=== PATIENT | female | born 1985 | race Caucasian/White ===

== ENCOUNTER → 2019-01-20 17:45 | Outpatient (CLI) | payer OTHER, SELFPAY ==
[2019-01-22 16:06] LABS: HPV Reflexed? NOT INDICATED
== END ==
PROVIDERS: Family Provider Internal Medicine; PCP Internal Medicine; Referring Provider Obstetrics & Gynecology; Visit Provider Obstetrics & Gynecology
DX: Z12.4 Encounter for screening for malignant neoplasm of cervix (principal)
CPT/HCPCS: 88175; G0145

== ENCOUNTER → 2020-07-25 15:11 | Outpatient (CLI) | payer OTHER, SELFPAY ==
[2019-08-20 15:04] VITALS: BMI 34.6
--- NOTE | 2020-07-25 15:15 | BI_ITS ---
MAMMOGRAPHY - BILATERAL SCREENING REASON FOR EXAM: Female, 35 years old. Routine annual screening examination. PERTINENT HISTORY: Mother with breast cancer. Grandmother with breast cancer. TECHNIQUE: Digital bilateral breast tanmay (3D mammographic acquisition) in the CC and MLO projections. 2-D mediolateral oblique (MLO) and craniocaudad (CC) views of both breasts were obtained. CAD: Full Field Digital Mammography with Computer Added Detection was performed. COMPARISON: Comparison is made with prior study dated 01/10/2014. FINDINGS: Breast Composition: There are scattered areas of fibroglandular density. There are no dominant masses or suspicious calcifications. No other significant abnormalities are identified. There has been no significant change since the prior study. BI/SCREEN MAMM (CAD) W/TANMAY BILAT IMPRESSION: Stable bilateral screening mammogram. Yearly follow-up mammogram recommended. (A) ASSESSMENT CATEGORY: BIRADS Category 1: Negative. A letter regarding these results will be sent to the patient by the facility within 30 days. Approximately 10% of breast cancers are not detected by mammography. A normal mammogram should not delay biopsy of a clinically suspicious abnormality. [id number] Electronically Signed: Roman Richter, at 8:04 EST , Service support ,
== END ==
PROVIDERS: PCP Internal Medicine; Referring Provider Student in an Organized Health Care Education/Training Program; Visit Provider Student in an Organized Health Care Education/Training Program
DX: Z12.31 Encounter for screening mammogram for malignant neoplasm of breast (principal); Z80.3 Family history of malignant neoplasm of breast
CPT/HCPCS: 77063; 77067

== ENCOUNTER 2020-08-23 23:05 | Emergency (ER) | payer OTHER, SELFPAY ==
[2019-08-20 15:04] VITALS: BMI 34.6
[2020-08-23 23:06] VITALS: BP 136/75; PULSE 90; RESP 15; TEMP 36.3; O2SAT 99; BMI 35.3
--- NOTE | 2020-08-23 23:18 | EKG12_ITS ---
Test Reason : CP Blood Pressure : / mmHG Vent. Rate : 076 BPM Atrial Rate : 076 BPM P-R Int : 126 ms QRS Dur : 082 ms QT Int : 364 ms P-R-T Axes : 029 061 036 degrees QTc Int : 409 ms Normal sinus rhythm Normal ECG Confirmed by BERNADINE LEYVA, MARIA G ([id number]), marketing editor LORE MOTLEY ([id number]) on 08/28/2020 9:33:03 AM Referred By: WENDI Confirmed By:MARIE COLINDRES MD
--- NOTE | 2020-08-23 23:19 | ED.DCSUM_ITS ---
History of Present Illness Chief Complaint: Chest Pain Informant: Patient Narrative: 5-year-old female presenting with chest pain since yesterday. She states that it feels like it aches in the center of her chest. Is constant. It does not radiate. Patient was diagnosed with Covid?19 on 16 August however she has had symptoms since the . She states that she has been recovering well although she does have some shortness of breath which has been persistent. She does not have any fevers or chills anymore. She is eating and drinking normally. She does not have any significant cardiac history. No history of DVT/PE. Past Medical History - Allergies and Home Meds Allergies/Adverse Reactions: Allergies No Known Allergies Allergy (Verified 08/23/20 23:05) Primary Care Physician: Britt Galvan MD [Primary Care Provider] - Prior records reviewed: Yes Past Medical History: - - No significant medical history. Lives: Spouse/ Significant Other Smoking Status: Never smoker Alcohol: None Drugs: None Review of Systems General: Denies: Chills, Fever, Sweats Eyes: Denies: Visual changes - bilaterally, Diplopia ENT: Denies: Rhinorrhea, Sore throat Cardiovascular: Reports: Chest pain. Denies: Palpitations Respiratory: Reports: Dyspnea on exertion - Mild. Denies: Dyspnea, Cough Gastrointestinal: Denies: Abdominal pain, Nausea, Vomiting, Diarrhea, Melena, Hematochezia Genitourinary: Denies: Dysuria, Hematuria, Frequency Musculoskeletal: Denies: Back pain, Extremity Pain Skin: Denies: Rash, Wounds Neurological: Denies: Headache, Weakness, Numbness Psych: Denies: Depression, Anxiety Endocrine: Denies: Polyuria, Polydipsia Physical Exam Vital Signs/Narrative: Vital Signs Temp Pulse Resp BP Pulse Ox 08/23/20 23:06 97.4 F L 90 15 136/75 H 99 Inital Vital Signs reviewed: Yes General: Well nourished, No Acute Distress Head: Normocephalic, Atraumatic Eyes: Perrl, EOMI ENT: Moist mucous membranes, No rhinorrhea Cardiovascular: Regular rate, Regular rhythm Respiratory: No distress, CTA bilaterally Extremities: Nontender, No edema Skin: Normal color, No rash. Negative for: Cyanosis, Diaphoresis Neurological: Alert, Oriented x3, Cranial nerves II-XII grossly intact Psychological: Normal affect, Normal Mood Diagnostic/Tx/Re-eval Clinical Impression(s) from Imaging Studies Chest CTA 08/24/20 00:05 IMPRESSION: Normal CTA chest examination, without a demonstrated pulmonary embolism or arterial dissection. Electronically Signed: Naheed Ceja MD at 0:52 EST , Service support , Laboratory Data 08/23/20 08/23/20 23:30 23:30 WBC 8.9 RBC 4.32 Hgb 12.8 Hct 38.8 MCV 89.8 MCH 29.6 MCHC 33.0 RDW Std Deviation 39.6 RDW Coeff of [place] 12.2 Plt Count 320 MPV 10.0 Immature Gran % (Auto) 1.100 H Neut % (Auto) 52.4 Lymph % (Auto) 37.5 [place] % (Auto) 7.2 Eos % (Auto) 1.2 Baso % (Auto) 0.6 Absolute Neuts (auto) 4.7 Absolute Lymphs (auto) 3.33 Nucleated RBC % 0 Sodium 138 Potassium 3.3 L Chloride 104 Carbon Dioxide 30.0 Anion Gap 4 L BUN 16 Creatinine 1.02 Estim Creat Clear Calc 63.68 Est GFR (MDRD) Af Amer 79 Est GFR (MDRD) Non-Af 65 BUN/Creatinine Ratio 15.7 Glucose 123 H Calcium 9.2 Troponin I < 0.015 - Rhythm Strip Rhythm Strip: Sinus Rhythm Rate: 114 - EKG Initial EKG Interpretation: No Acute Injury Pattern, Sinus Tachycardia - Medical Decision Making 35-year-old female presenting with chest pain which has been constant since yesterday. She does not have significant shortness of breath but states she has had some residual shortness of breath secondary to Covid?19 infection. She states she is mostly recovered and feels fairly well with exception of the new onset of chest pain over the last 24 hours. Patient no longer has fever or other symptoms of Covid?19. EKG performed on arrival and interpreted by myself shows a sinus rhythm at 76 bpm without ischemic changes. CTA of the chest interpreted by the radiologist and reviewed by myself shows no acute pulmonary process. Troponin is negative. Lab work is unremarkable. Patient counseled that her chest pain is likely not cardiac in nature due to it being present for 24 hours and having a negative troponin and normal EKG. She was counseled that she does not have a pulmonary embolism or other acute pulmonary process. Patient will be discharged home in stable condition. She was recommended to follow-up with her primary care provider for any new or worsening symptoms. She is given return precautions. Patient stable discharge at this time. Impression: 1. Chest pain 2. History of Covid?19 ED Disposition - Plan for ED Patient: Disposition: Home or Assisted Living Instructions: ED Chest Pain, Uncertain Cause Referrals: Britt Galvan MD [Primary Care Provider] -
[2020-08-23 23:28] VITALS: O2SAT 99
[2020-08-23 23:40] LABS: Absolute Lymphocyte Count 3.33 X10^3/uL (0.83-4.51); Absolute Neutrophil Count 4.7 X10^3/uL (2.0-7.7); Basophil# 0.05 X10^3/uL; Basophil% 0.6 % (0-1); Eosinophil# 0.11 X10^3/uL; Eosinophils% 1.2 % (0-5); Hematocrit 38.8 % (37-47); Hemoglobin 12.8 g/dL (12.0-15.0); Lymphocyte # 3.33 X10^3/ul (4.0); Lymphocyte % 37.5 % (19-41); Mean Corpuscular Hgb 29.6 pg (27.0-32.0); Mean Corpuscular Volume 89.8 fL (81-99); Monocyte# 0.64 X10^3/uL; Monocyte% 7.2 % (0-10); NRBC Flagged by Analyzer 0 % (0-5); Neutrophil # 4.66 X10^3/uL (2.7-7.7); Neutrophil % 52.4 % (47-70); Platelet Count 320 K/mm3 (150-450); RBC Distribution Width CV 12.2 % (11.6-14.6); RBC Distribution Width SD 39.6 fl (35.1-43.9); Red Blood Count 4.32 M/mm3 (4.2-5.4); White Blood Count 8.9 K/mm3 (4.4-11.0)
[2020-08-23 23:59] LABS: Anion Gap 4 (5-15); BUN 16 mg/dL (7-18); BUN/Creat Ratio 15.7 RATIO (10-20); Calcium,Total 9.2 mg/dL (8.5-10.1); Chloride 104 mmol/L (98-107); Creatinine, Serum 1.02 mg/dL (0.55-1.02); EST Glomerular Filtration Rate 65 mL/min (>60); Est Glom Filt Rate - Afr Amer 79 mL/min (>60); Estimated Creatinine Clearance 63.68 ml/min; Glucose 123 mg/dL (74-106); Potassium 3.3 mmol/L (3.5-5.1); Sodium Level 138 mmol/L (136-145)
--- NOTE | 2020-08-24 00:05 | CT_ITS ---
STUDY: CTA CHEST REASON FOR EXAM: Female, 35 years old. CP/Hurts to take deep breath. Not . Covid positive RADIATION DOSAGE (If Supplied By Facility): CTDIvol = ( 11.42 ) mGy, DLP = ( 478.82 ) mGycm TECHNIQUE: The examination was performed with the intravenous administration of IV 100mL Isovue-300. Post-processing of the angiographic images was performed, with multiplanar reformation and 3D reconstruction. Individualized dose optimization techniques were used for this CT. COMPARISON: None. FINDINGS: Normal enhancement of the main pulmonary artery and right and left pulmonary arteries. Normal enhancement of the bilateral peripheral pulmonary arteries. There is no demonstrated pulmonary embolism. Normal thoracic aorta and visualized great vessels. There is no demonstrated aortic dissection. Normal heart and pericardium. Normal mediastinum. Normal hilar regions. Normal visualized trachea and bronchi. The lungs are well expanded. Normal pulmonary parenchyma. Normal pleura. Normal chest wall structures. Normal osseous structures. Normal visualized upper abdomen. CT/CTA Chest W/WO Contrast IMPRESSION: Normal CTA chest examination, without a demonstrated pulmonary embolism or arterial dissection. Electronically Signed: Naheed Ceja MD at 0:52 EST , Service support ,
[2020-08-24 01:42] VITALS: PULSE 80; RESP 16; O2SAT 95
[2020-08-24 02:25] VITALS: BP 109/73; PULSE 85; RESP 16; O2SAT 96
== END 2020-08-24 02:27 | disposition home or self-care (01) ==
PROVIDERS: Emergency Provider Student in an Organized Health Care Education/Training Program; PCP Internal Medicine
DX: R07.9 Chest pain, unspecified (principal); Z79.84 Long term (current) use of oral hypoglycemic drugs; Z79.899 Other long term (current) drug therapy; Z86.19 Personal history of other infectious and parasitic diseases
CPT/HCPCS: 71275; 80048; 84484; 85025; 93005; 99284; Q9967; A4216

== ENCOUNTER 2021-11-05 16:20 | Outpatient (CLI) | payer OTHER, SELFPAY ==
[2021-11-11 16:30] LABS: HPV APTIMA, High Risk Negative (Negative)
== END 2021-11-05 23:59 | disposition home or self-care (01) ==
LOC: LABSPEC 16:21
PROVIDERS: PCP Internal Medicine; Visit Provider Student in an Organized Health Care Education/Training Program
DX: Z12.4 Encounter for screening for malignant neoplasm of cervix (principal)
CPT/HCPCS: 36415; 87624; 88175; G0145

== ENCOUNTER 2021-11-14 15:01 | Outpatient (CLI) | payer OTHER, SELFPAY ==
--- NOTE | 2021-11-14 15:03 | BI_ITS ---
MAMMOGRAPHY - BILATERAL SCREENING REASON FOR EXAM: Female, 36 years old. Routine annual screening examination. PERTINENT HISTORY: Mother with breast cancer. Grandmother with breast cancer. TECHNIQUE: Digital bilateral breast tanmay (3D mammographic acquisition) in the CC and MLO projections. 2-D mediolateral oblique (MLO) and craniocaudad (CC) views of both breasts were obtained. CAD: Full Field Digital Mammography with Computer Added Detection was performed. COMPARISON: Comparison is made with prior study dated 07/25/2020 and 01/10/2014. FINDINGS: Breast Composition: There are scattered areas of fibroglandular density. There are no dominant masses or suspicious calcifications. Stable small benign-appearing bilateral axillary lymph. No other significant abnormalities are identified. There has been no significant change since the prior study. BI/SCRN MAMM (CAD)W/TANMAY BILAT IMPRESSION: Stable bilateral screening mammogram. Yearly follow-up mammogram recommended. (A) ASSESSMENT CATEGORY: BIRADS Category 2: Benign. A letter regarding these results will be sent to the patient by the facility within 30 days. Approximately 10% of breast cancers are not detected by mammography. A normal mammogram should not delay biopsy of a clinically suspicious abnormality. [id number] Electronically Signed: Roman Richter MD at 15:40 EDT ,
== END 2021-11-14 23:59 | disposition home or self-care (01) ==
LOC: OPBI 15:02
PROVIDERS: PCP Internal Medicine; Visit Provider Student in an Organized Health Care Education/Training Program
DX: Z12.31 Encounter for screening mammogram for malignant neoplasm of breast (principal); Z80.3 Family history of malignant neoplasm of breast
CPT/HCPCS: 77063; 77067

== ENCOUNTER → 2023-08-21 | Outpatient (CLI) | payer OTHER, SELFPAY ==
--- OUTSIDE RECORDS SUMMARY | 2023-08-21 08:44 | XMS RPT_ITS | CCD ---
Author Name Unknown Address [address] [place] [address] Organization [facility] Care Team Providers Care Interface Developer Name Role Phone Zari Hightower LPN Unavailable Unavailable JAYNA MCBRIDE DO Attending Unavailable JAYNA MCBRIDE DO Primary Care Unavailable JAYNA MCBRIDE DO Admitting Unavailable Free, Text Entry Unavailable Unavailable Mary Salmeron Unavailable Unavailable Edd, Dr. Hernandez Referring Unavailbeba Puga, Dr. Hernandez Attending Unavailbeab Puga, Dr. Hernandez Primary Care UnavailMary Stover Unavailable [phone] FRANCOIS GRIFFITH Primary Care Unavailable ROCHELLE, GIUSEPPE Referring Unavailable ROCHELLE GIUSEPPE Referring Unavailable FRANCOIS GRIFFITH Primary Care Unavailable ROCHELLE GIUSEPPE Attending Unavailable FRANCOIS GRIFFITH Primary Care Unavailable Medications Current Medications Medication Drug Class(es) Dates Sig (Normalized) Sig (Original) amoxicillin 80 mg/ml oral suspension (1 source) Penicillin-class Antibacterial Start: 11-02-2021 End: 11-11-2021 take 11 mL by mouth twice daily amoxicillin 400 mg/5 mL oral liquid ; 11 milliliter(s) orally 2 times a day x 10 days Quantity: 230 Refills: 0 Ordered: 02-Nov-2021 Mary Salmeron Start: 02-Nov-2021 End: 11-Nov-2021 Generic Substitution Allowed Comments: Expires Finish all this medication unless otherwise directed by prescriber.Refrig erate and shake well. Expires Completed/Discontinued Medications Medication Drug Class(es) Dates Sig (Normalized) Sig (Original) apremilast 30 mg oral tablet (2 sources) Start: 01-17-2022 Otezla 30 MG Oral Tablet Quantity: 0 Refills: 0 Ordered: 10-Jun-2022 Mary Puga DO Start : 17-Jan-2022 Active Problems Active Problems Problem Classification Problem Date Documented Date Episodic/Chronic Conduction disorders (1 source) Left bundle branch block; Translations: [Left bundle-branch block, unspecified] Onset: 11-21-2011 11-21-2011 Chronic Menstrual disorders (1 source) Irregular menstruation, unspecified; Translations: [Irregular menstrual cycle] Onset: 08-08-2023 Chronic Mood disorders (1 source) Depressive disorder; Translations: [Depressive disorder, not elsewhere classified] Chronic Other inflammatory condition of skin (1 source) Psoriatic arthritis; Translations: [Psoriatic arthropathy] Chronic Other nutritional; endocrine; and metabolic disorders (1 source) Obesity; Translations: [Obesity, unspecified] Chronic Other nutritional; endocrine; and metabolic disorders (1 source) Obese class I; Translations: [Obesity, unspecified] Chronic Other nutritional; endocrine; and metabolic disorders (1 source) Intentional weight loss; Translations: [Weight loss, intentional] Episodic Other screening for suspected conditions (not mental disorders or infectious disease) (1 source) Encounter for screening mammogram for malignant neoplasm of breast; Translations: [Encounter for screening mammogram for malignant neoplasm of breast] Onset: 08-14-2023 Episodic Other skin disorders (1 source) Acne; Translations: [Other acne] Episodic Other upper respiratory infections (1 source) Viral upper respiratory tract infection; Translations: [Acute upper respiratory infections of unspecified site] 11-02-2021 Episodic Otitis media and related conditions (2 sources) Acute otitis media; Translations: [Unspecified otitis media] 11-02-2021 Episodic Residual codes; unclassified (1 source) History finding; Translations: [Other specified conditions influencing health status] Episodic Spondylosis; intervertebral disc disorders; other back problems (3 sources) Other intervertebral disc degeneration, lumbar region; Translations: [Other intervertebral disc degeneration, lumbar region] Onset: 01-09-2021 Chronic Spondylosis; intervertebral disc disorders; other back problems (1 source) Degeneration of intervertebral disc; Translations: [Degeneration of intervertebral disc, site unspecified] Episodic Thyroid disorders (1 source) Goiter; Translations: [Nontoxic goiter, unspecified] Onset: 07-22-2017 07-22-2017 Chronic Unclassified (2 sources) EARACHE SORE THROAT 11-02-2021 Past or Other Problems Problem Classification Problem Date Documented Da te Episodic/Chronic Cardiac dysrhythmias (1 source) Palpitations; Translations: [Palpitations] Onset: 11-21-2011 11-21-2011 Episodic Results Test Name Value Interpretation Reference Range Facil ity Vital Signs Date Time Vital Sign Value Performing Clinician Facility 06-10-2022 14:56-0400 Body height 160.02 cm Mary L Oberhauser Work Phone: [facility] Work Phone: 06-10-2022 14:56-0400 Body mass index (BMI) [Ratio] 34.54 kg/m2 Mary L Oberhauser Work Phone: [facility] Work Phone: 06-10-2022 14:56-0400 Body surface area Derived from formula 1.91 m2 Mary L Oberhauser Work Phone: [facility] Work Phone: 06-10-2022 14:56-0400 Body weight 88.45 kg Mary L Oberhauser Work Phone: [facility] Work Phone: 06-10-2022 14:56-0400 Diastolic blood pressure 70 mm[Hg] Mary L Oberhauser Work Phone: [facility] Work Phone: 06-10-2022 14:56-0400 Heart rate 93 /min Mary L Oberhauser Work Phone: [facility] Work Phone: 06-10-2022 14:56-0400 Systolic blood pressure 119 mm[Hg] Mary L Oberhauser Work Phone: [facility] Work Phone: 11-02-2021 16:52-0500 Body height 160 cm Text Entry Free [facility] 11-02-2021 16:52-0500 Body temperature 98.06 [degF] Text Entry Free [facility] 11-02-2021 16:52-0500 Diastolic blood pressure 80 mm[Hg] Text Entry Free [facility] 11-02-2021 16:52-0500 Heart rate 98 /min Text Entry Free [facility] 11-02-2021 16:52-0500 Respiratory rate 16 /min Text Entry Free [facility] 11-02-2021 16:52-0500 SaO2% (BldA) [Mass fraction] 99 % Text Entry Free [facility] 11-02-2021 16:52-0500 Systolic blood pressure 130 mm[Hg] Text Entry Free [facility] 11-22-2011 14:53-0400 BMI (Body Mass Index) 28.85 kg/m2 [facility] Work Phone: 11-22-2011 14:53-0400 BP Diastolic 60 mm[Hg] [facility] Work Phone: 11-22-2011 14:53-0400 BP Systolic 100 mm[Hg] [facility] Work Phone: 11-22-2011 14:53-0400 Height 160.02 cm [facility] Work Phone: 11-22-2011 14:53-0400 Pulse (Heart Rate) 82 /min [facility] Work Phone: 11-22-2011 14:53-0400 Respiratory Rate 20 /min [facility] Work Phone: 11-22-2011 14:53-0400 Weight 73.62 kg Zari Hightower LPN [facility] Work Phone: Encounters Encounter Date Encounter Type Care Provider Facility Start: 08-14-2023 End: 08-14-2023 ambulatory FRANCOIS GRIFFITH Facility:[facility] Start: 08-08-2023 End: 08-09-2023 ambulatory GIUSEPPE BYRD Facility:[facility] Start: 06-10-2022 Office outpatient ne w 45 minutes Mary Puga Work Phone: [facility] Work Phone: Start: 06-10-[address] Mary Puga Fa cility:[id number] Start: 11-02-2021 End: 11-02-2021 Emergency department patient visit Mary Salmeron [facility] Start: 01-09-2021 End: 01-09-2021 ambulatory [facility] Procedures Date Procedure Procedure Detail Performing Clinician Start: 11-22-2011 End: 12-04-2011 24 hour holter monitor Rosalio Cartwright MD Start: 11-22-2011 End: 12-04-2011 Echocardiography Rosalio Cartwright MD Start: 11-22-2011 End: 12-04-2011 Stress Echocardiogram (treadmill) Rosalio Cartwright MD Dilation and curettage Mary Puga Work Phone: Injection of spinal epidural space Mary Puga Work Phone: Plan of Treatment Date Care Activity Detail Author Start: 07-22-2017 End: 07-22-2017 Appointment Appointment [facility] Work Phone: Start: 07-22-2017 End: 07-22-2017 Thyroid stimulating hormone (TSH) *TSH [facility] Work Phone: Start: 07-22-2017 End: 07-22-2017 Thyroxine (T4) free *T4 free [facility] Work Phone: Start: 07-22-2017 End: 07-22-2017 Triiodothyronine (T3) free *T3-Free [facility] Work Phone: Start: 07-22-2017 End: 07-22-2017 Us soft tissue head & neck real time imge docm US Thyroid (Soft tissue neck) [facility] Work Phone: Start: 11-22-2011 End: 11-22-2011 24 hour holter monitor 24 hour holter monitor [facility] Work Phone: Start: 11-22-2011 End: 11-22-2011 Ecg routine ecg w/least 12 lds w/i&r EKG (In office) [facility] Work Phone: Start: 11-22-2011 End: 11-22-2011 Echocardiography Echocardiogram (complete) [facility] Work Phone: Start: 11-22-2011 End: 11-22-2011 Follow Up Appt 6 weeks Follow Up Appt 6 weeks [facility] Work Phone: Start: 11-22-2011 End: 11-22-2011 Stress Echocardiogram (treadmill) Stress Echocardiogram (treadmill) [facility] Work Phone: Payers Date Payer Category Payer Unknown [id number] 1985 Unknown [id number] 1985 Unknown [id number] Unknown Social History Date Type Detail Facility [facility] Tobacco smoking consumption unknown [facility] Drinks caffeinated tea Drinks caffeinated tea -[facility] Work Phone: Progress note 08-14-2023 Note Date & Type Note Facility 08-14-2023 Note HNO ID: [id number] Author: Beth Ibrahim Mammo Tech Service: ? Author Type: Change Control Coordinator Type: Progress Notes Filed: 08/14/2023 11:28 AM Note Text: Radiology Service Progress Note PATIENT NAME: Tiffany Valdez DATE OF SERVICE: August 14, 2023 TIME: 10:49 AM PATIENT IDENTITY VERIFICATION COMPLETED USING TWO (2) IDENTIFIERS: Name and Date of confirmed by patient verbally. FALL SCREENING: Has the patient had 2 falls in the last year or 1 fall with injury or currently using an Ambulatory Assistive Device (Walker, Cane, Wheelchair, Crutches, etc.)? No PATIENT GENDER DATA: Female. status: : No status: NO. PATIENT RELEVANT IMPLANT DATA REVIEWED: Not Applicable RADIOLOGY DEPARTMENT: Mammography PERIPHERAL IV DATA: Not applicable SIGNED BY: Beth Ibrahim [employer] August 14, 2023 10:49 AM [facility] Progress note 08-08-2023 Note Date & Type Note Facility 08-08-2023 Note HNO ID: [id number] Author: Giuseppe Byrd APRN.[employer] Service: ? Author Type: Nurse Practitioner Type: Progress Notes Filed: 08/08/2023 4:03 PM Note Text: Tiffany is a 38 year old who presents for an annual gynecologic exam with complaints, irregular bleeding. Menses: skipping B/t 50-72 days Flow 5 days. For the past 6 months Contraception: vasectomy HPV vaccine: No Last Pap: 2021 normal HPV: negative History of abnormal pap: No Last mammogram: 2021 normal Sexually active: Yes Pain with intercourse: No Postcoital bleeding: No Hot flashes: Yes Night sweats: Yes Trouble sleep OB History T0 L3 SAB0 IAB0 Ectopic0 Multiple0 Live Births0 Housekeeper History LMP: 10/05/2014, Having periods Age at Menarche: Age at First : Age at Menopause: Housekeeper History Comments: Sexual Activity: Not Asked; Male; not asked Contraception: No contraception data on record PAST MEDICAL HISTORY Diagnosis Date Acne Foreign body in conjunctival sac 09/27/2015 History of ADHD child EM (obstructive sleep apnea) DME [employer] [facility] depression PAST SURGICAL HISTORY Procedure Laterality Date DANDC DIAG AND/OR THERAP, NOT OB heavy menses EXTRACTION, ERUPTED TOOTH OR EXPOSED ROOT (ELEVATION AND/OR FORCEPS REMOVAL) FAMILY HISTORY Problem Relation Age of Onset Breast Cancer Mother Cancer Mother hodgen's x 2 Thyroid Mother half of thyroid removed- d/t cancer Hypertension Mother Diabetes Mother other (ovarian cyst) Mother Hypertension Father Heart Maternal Grandmother Breast Cancer Paternal Grandmother SOCIAL HISTORY Social History Tobacco Use Smoking status: Never Smokeless tobacco: Never Vaping Use Vaping Use: Never used Substance Use Topics Alcohol use: Yes Comment: hardly ever Drug use: No REVIEW OF SYSTEMS Abdomen: No abdominal pain, nausea, vomiting, diarrhea, or constipation. No bloating, early satiety, indigestion, or increased flatulence. Bladder: No dysuria, gross hematuria, urinary frequency, urinary urgency, or incontinence. Breast: No breast lumps, nipple d/c, overlying skin changes, redness or skin retraction. Allergies and current medication updated:Yes EXAM: LMP 10/05/2014 GENERAL: pleasant, female in no apparent distress HEENT: Normocephalic, atraumatic, mucus membranes moist, and no lesions NECK: Supple, full range of motion, no adenopathy, and thyroid normal DERMATOLOGY: Normal, without lesions, non-icteric, and non-hirsute BREAST: soft, non-tender, symmetric, no dominant mass, normal nipple-areolar complex, no lymphadenopathy, and no nipple discharge CHEST: Normal inspiratory effort ABDOMEN: soft, non-tender, and no masses PELVIC: external genitalia normal, normal Bartholin's glands, urethra, [place]'s glands, no vulvar lesions, no cervical lesions, physiologic discharge present, normal appearing perineal body and perianal region BIMANUAL: uterus normal size, shape and consistency, no adnexal masses, and non-tender RECTOVAGINAL: deferred. NEURO: alert and oriented x3,exam grossly non-focal EXTREMITIES: normal ASSESSMENT/PLAN: 1) Health maintenance: Pap/HPV up to date. Mammogram ordered. Nutrition, exercise and routine health maintenance exams reviewed. Calcium/Vitamin D supplementation information provided. 2) Contraception: vasectomy. Contraceptive options reviewed and information provided. 3) STD screening: Declined STD check. 4) Follow up one year or sooner as needed 5) estrogen, FSH and TSH ordered for irregular menses Giuseppe Byrd APRN.[facility] History of Present illness Narrative 06-16-2021 Note Date & Type Note Facility 06-16-2021 History of Presen t illness Narrative Patient is a 37 y.o. female patient who is here today to establish acre.Patient has been diagnosed with psoriatic arthritis, she sees Lakeshia Eugene, is on Otezla for the last year.She has some residual patches on her elbows and knees but it is mostly cleared up.She also takes meloxicam 15mg po daily, see Dr Mcbride in [place], had some chronic lumbar pain, DJD, has had spinal injection in the past.She has lost 16 lbs so far on Ozempic, she gets it from a [facility], started it 2 mo ago.She is currently doing 0.53 mg.She was having a lot of side effects with nausea but she had covid so was not sure which it was.She has EM and uses a cpap nightly. -[facility] Work Phone: Summary Purpose Family History No Family History Records FoundUnknown Family Member Name Dates Details Family history of hypertensi on: Father(V17.49, Z82.49) Status:Active Family history of diabetes m ellitus: Mother, Father(V18.0, Z83.3) Status:Active Family history of kidney dis ease: Sister(V18.69, Z84.1) Status:Active Psychiatric diagnosis: Siste r Status:Active Family history of thyroid di sease: Mother, Father(V18.19, Z83.49) Comments:s/p thyroid caner; Status:Active Family history of malignant neoplasm: Mother, Paternal Grandmother(V16.9, Z80.9) Comments:breast cancer aroun d age 40; Status:Active Advance Directives No Advanced Directives Records FoundNo Advanced Directives Records FoundNo Advanced Directives Records FoundNo Advanced Directives Records FoundNo Advanced Directives Records Found Additional Source Comments INFORMATION SOURCE (unrecogn ized section and content) DATE CREATED AUTHOR AUTHOR'S ORGANIZ ATION 11/05/2021 [facility] DATE CREATED AUTHOR AUTHOR'S ORGANIZ ATION 06/15/2022 [facility] DATE CREATED AUTHOR AUTHOR'S ORGANIZ ATION 06/16/2022 [employer] DATE CREATED AUTHOR AUTHOR'S ORGANIZ ATION 08/20/2023 [facility] <item> Privacy Markings (unrecogniz ed section and content) Section Author: Jane Baker PROHIBITION ON REDISCLOSURE OF CONFIDENTIAL INFORMATION This notice accompanies a disclosure of information concerning a client made to you with the consent of such client. FOR RECORDS PERTAINING TO PATIENTS WHO ARE OR HAVE BEEN ENROLLED IN A CHEMICAL DEPENDENCY/SUBSTANCEABUSE PROGRAM, SOME INFORMATION MAY BE OMITTED. This clinical summary was aggregated from multiple sources. Caution should be exercised in using it in the provision of clinical care. This summary normalizes information from multiple sources, and as a consequence, information in this document may materially change the coding, format and clinical context of patient data. In addition, data may be omitted in some cases. CLINICAL DECISIONS SHOULD BE BASED ON THE PRIMARY CLINICAL RECORDS. [employer] provides no warranty or guarantee of the accuracy or completeness of information in this document.
== END | disposition home or self-care (01) ==
PROVIDERS: PCP Internal Medicine; Referring Provider Nurse Practitioner Family; Visit Provider Nurse Practitioner Family
DX: R92.8 Other abnormal and inconclusive findings on diagnostic imaging of breast (principal)

== ENCOUNTER → 2023-08-22 | Outpatient (CLI) | payer OTHER, SELFPAY ==
--- NOTE | 2023-08-22 12:15 | BI_ITS ---
MAMMOGRAPHY - BILATERAL DIAGNOSTIC REASON FOR EXAM: Female, 38 years old. Asymmetries noted on prior outside mammograms. PERTINENT HISTORY: Mother and grandmother with breast cancer. TECHNIQUE: Digital examination. Mediolateral oblique (MLO) and craniocaudad (CC) views of both breasts were obtained., Coned down compression views of both breasts were also obtained CAD: CAD was performed on this study. COMPARISON: August 14, 2023, November 14, 2021, July 25, 2020 FINDINGS: Breast Composition: The breasts are almost entirely fatty. The asymmetry seen along the outside study is not identified on the diagnostic mammogram today. Asymmetry in the left breast is stable compared to July 2020. There are no dominant masses or suspicious calcifications. Patient should return for yearly screening mammogram. BI/DIAG MAMM W/CAD, BILAT IMPRESSION: No abnormality on the bilateral diagnostic mammogram. Patient should return for screening mammogram in 1 year ASSESSMENT CATEGORY: . BIRADS Category 2: Benign. A letter regarding these results will be sent to the patient by the facility within 30 days. FOLLOW UP RECOMMENDATION: Yearly follow up mammogram recommended. (A) Approximately 10% of breast cancers are not detected by mammography. A normal mammogram should not delay biopsy of a clinically suspicious abnormality. Electronically Signed: Jose Chung MD at 13:24 EST ,
--- OUTSIDE RECORDS SUMMARY | 2023-08-22 12:26 | XMS RPT_ITS | CCD ---
Author Name Unknown Address [address] [place] [address] Organization [facility] Care Team Providers Care Improvement Nurse Name Role Phone Zari Hightower LPN Unavailable Unavailable JAYNA MCBRIDE DO Attending Unavailable JAYNA MCBRIDE DO Primary Care Unavailable JAYNA MCBRIDE DO Admitting Unavailable Free, Text Entry Unavailable Unavailable Mary Salmeron Unavailable Unavailable Edd, Dr. Hernandez Referring Unavailbeba Puga, Dr. Hernandez Attending Unavailbeba Puga, Dr. Hernandez Primary Care UnavailMary Stover Unavailable [phone] FRANCOIS GRIFFITH Primary Care Unavailable ROCHELLE, GIUSEPPE [...] 160.02 cm Mary L Oberhauser Work Phone: [facility] Work Phone: 06-10-2022 14:56-0400 Body mass index (BMI) [Ratio] 34.54 kg/m2 Mary L Oberhauser Work Phone: [facility] Work Phone: 06-10-2022 14:56-0400 Body surface area Derived from formula 1.91 m2 Mary L Oberhauser Work Phone: [facility] Work Phone: 06-10-2022 14:56-0400 Body weight 88.45 kg Mary L Oberhauser Work Phone: [facility] Work Phone: 06-10-2022 14:56-0400 Diastolic blood pressure 70 mm[Hg] Mary L Oberhauser Work Phone: [facility] Work Phone: 06-10-2022 14:56-0400 Heart rate 93 /min Mary L Oberhauser Work Phone: [facility] Work Phone: 06-10-2022 14:56-0400 Systolic blood pressure 119 mm[Hg] Mary L Oberhauser Work Phone: [facility] Work Phone: 11-02-2021 16:52-0500 Body height 160 cm Text Entry Free [facility] 11-02-2021 16:52-0500 Body temperature 98.06 [degF] Text Entry Free [facility] 11-02-2021 16:52-0500 Diastolic blood pressure 80 mm[Hg] Text Entry Free [facility] 11-02-2021 16:52-0500 Heart rate 98 /min Text Entry Free [facility] 11-02-2021 16:52-0500 Respiratory rate 16 /min Text Entry Free [facility] 11-02-2021 16:52-0500 SaO2% (BldA) [Mass fraction] 99 % Text Entry Free [facility] 11-02-2021 16:52-0500 Systolic blood pressure 130 mm[Hg] Text Entry Free [facility] 11-22-2011 14:53-0400 BMI (Body Mass Index) 28.85 [...] 14:53-0400 Weight 73.62 kg Zari Hightower LPN [facility] Work Phone: Encounters Encounter Date Encounter Type Care Provider Facility Start: 08-14-2023 End: 08-14-2023 ambulatory FRANCOIS GRIFFITH Facility:[facility] Start: 08-08-2023 End: 08-09-2023 ambulatory GIUSEPPE BYRD Facility:[facility] Start: 06-10-2022 Office outpatient ne w 45 minutes Mary Puga Work Phone: [facility] Work Phone: Start: 06-10-[address] Mary Puga Fa cility:[id number] Start: 11-02-2021 End: 11-02-2021 Emergency department patient visit Mary Salmeron [facility] Start: 01-09-2021 End: 01-09-2021 ambulatory [facility] Procedures Date Procedure Procedure Detail Performing [...] End: 07-22-2017 Thyroid stimulating hormone (TSH) *TSH [facility] Work Phone: Start: 07-22-2017 End: 07-22-2017 Thyroxine (T4) free *T4 free [facility] Work Phone: Start: 07-22-2017 End: 07-22-2017 Triiodothyronine (T3) free *T3-Free [facility] Work Phone: Start: 07-22-2017 End: 07-22-2017 Us soft tissue head & neck real time imge docm US Thyroid (Soft tissue neck) [facility] Work Phone: Start: 11-22-2011 End: 11-22-2011 24 hour holter monitor 24 hour holter monitor [facility] Work Phone: Start: 11-22-2011 End: 11-22-2011 Ecg routine ecg w/least 12 lds w/i&r EKG (In office) [facility] Work Phone: Start: 11-22-2011 End: 11-22-2011 Echocardiography Echocardiogram (complete) [facility] Work Phone: Start: 11-22-2011 End: 11-22-2011 Follow Up Appt 6 weeks Follow Up Appt 6 weeks [facility] Work Phone: Start: 11-22-2011 End: 11-22-2011 Stress Echocardiogram (treadmill) Stress Echocardiogram (treadmill) [facility] Work Phone: Payers Date Payer Category Payer Unknown [id number] 1985 Unknown [id number] 1985 Unknown [id number] Unknown Social History Date Type Detail Facility [facility] Tobacco smoking consumption unknown [facility] Drinks caffeinated tea Drinks caffeinated tea -[facility] Work Phone: Progress note 08-14-2023 Note Date & Type Note Facility 08-14-2023 Note HNO ID: [id number] Author: Beth Ibrahim Mammo Tech Service: ? Author Type: Dietitian Teacher Type: Progress Notes Filed: 08/14/2023 11:28 AM [...] DATA: Not applicable SIGNED BY: Beth Ibrahim [address] August 14, 2023 10:49 AM [facility] Progress note 08-08-2023 Note Date & Type Note Facility 08-08-2023 Note HNO ID: [id number] Author: Giuseppe Byrd APRN.TOOL CLERK Service: ? Author Type: Nurse Practitioner Type: [...] L3 SAB0 IAB0 Ectopic0 Multiple0 Live Births0 [employer] History LMP: 10/05/2014, Having periods Age at Menarche: Age at First : Age at Menopause: [employer] History Comments: Sexual Activity: Not Asked; Male; [...] external genitalia normal, normal Bartholin's glands, urethra, Cohoes's glands, no vulvar lesions, no cervical lesions, [...] TSH ordered for irregular menses Giuseppe Byrd APRN.[facility] History of Present illness Narrative 06-16-2021 Note [...] 15mg po daily, see Dr Mcbride in [place], had some chronic lumbar pain, DJD, has had spinal injection in the past.She has lost 16 lbs so far on Ozempic, she gets it from a [employer] [facility], started it 2 mo ago.She is currently doing 0.53 mg.She was having a lot of side effects with nausea but she had covid so was not sure which it was.She has EM and uses a cpap nightly. -[facility] Work Phone: Summary Purpose Family [...] DATE CREATED AUTHOR AUTHOR'S ORGANIZ ATION 11/05/2021 [facility] DATE CREATED AUTHOR AUTHOR'S ORGANIZ ATION 06/15/2022 [facility] DATE CREATED AUTHOR AUTHOR'S ORGANIZ ATION 06/16/2022 [employer] DATE CREATED AUTHOR AUTHOR'S ORGANIZ ATION 08/20/2023 [facility] <item> Privacy Markings (unrecogniz ed section [...] BE BASED ON THE PRIMARY CLINICAL RECORDS. [employer] provides no warranty or guarantee of the accuracy or completeness of information in this document.
== END | disposition home or self-care (01) ==
LOC: OPBI 12:12
PROVIDERS: PCP Internal Medicine; Visit Provider Nurse Practitioner Family
DX: N64.89 Other specified disorders of breast (principal); Z80.3 Family history of malignant neoplasm of breast
CPT/HCPCS: 77066

== ENCOUNTER → 2024-08-23 | Outpatient (CLI) | payer OTHER, SELFPAY ==
--- NOTE | 2024-08-23 08:16 | BI_ITS ---
MAMMOGRAPHY - BILATERAL SCREENING 3-D TOMOSYNTHESIS REASON FOR EXAM: Female, 39 years old. SCREENING PERTINENT HISTORY: No significant family history. TECHNIQUE: 2-D mammograms and 3-D Tomosynthesis of the breast (s) were performed. CAD was performed. COMPARISON: 08/14/2023 FINDINGS: The breast composition is composed of scattered fibroglandular density. Scattered benign calcifications are seen. No dense spiculated masses or suspicious microcalcifications are identified. No architectural distortion is identified. There is no skin thickening or retraction. There has been no significant change since the prior study. BI/SCRN MAMM (CAD)W/TANMAY BILAT IMPRESSION: No mammographic signs of malignancy. Routine yearly mammograms recommended. ASSESSMENT CATEGORY: BIRADS Category 1: Negative. A letter regarding these results will be sent to the patient by the facility within 30 days. FOLLOW UP RECOMMENDATION: Yearly follow up mammogram recommended. (A) Approximately 10% of breast cancers are not detected by mammography. A normal mammogram should not delay biopsy of a clinically suspicious abnormality. Electronically Signed: Darren Reid MD at 20:32 EST ,
== END | disposition home or self-care (01) ==
LOC: OPBI 08:15
PROVIDERS: PCP Internal Medicine; Referring Provider Nurse Practitioner Family; Visit Provider Nurse Practitioner Family
DX: Z12.31 Encounter for screening mammogram for malignant neoplasm of breast (principal)
CPT/HCPCS: 77063; 77067